=== PATIENT | male | born 1985 | race Caucasian/White ===

== ENCOUNTER 2019-08-23 11:40 | Emergency (ER) | payer OTHER, BC ==
[~2019-08-23] VITALS: Ht 177.8 cm; Wt 86.2 kg
--- OUTSIDE RECORDS SUMMARY | ~2019-08-23 | XMS | Clinical Summary ---
Demographics + + + | Address | [address] | | | [place] [address] | + + + | Home Phone | | + + + | Preferred Language | Unknown | + + + | Marital Status | | + + + | Jainism Affiliation | Unknown | + + + | Race | Unknown | + + + | Ethnic Group | Unknown | + + + Author + + + | Author | [facility] (Historical as of | | | 12-09-18) | + + + | Organization | [facility] (Historical as of | | | 12-09-18) | + + + | Address | Unknown | + + + | Phone | Unavailable | + + + Support + + +---------+ + | Name | Relationship | Address | Phone | + + +---------+ + | Suzie Ordoñez | ECON | Unknown | | + + +---------+ + Care Team Providers + +------+ + | Care Mortgage Protection Specialist Name | Role | Phone | + +------+ + | Iglesia Pierre PA-C | PP | | + +------+ + Allergies No Known Allergies Current Medications + + +-------+---------+------+------+-------+ | Prescription | Sig. | Disp. | Refills | Star | End | Statu | | | | | | t | Date | s | | | | | | Date | | | + + +-------+---------+------+------+-------+ | clonazePAM | Take 1 mg by mouth 2 | | | | | Activ | | (KLONOPIN) 1 MG | (two) times daily | | | | | e | | tablet | as needed for | | | | | | | | Anxiety. | | | | | | + + +-------+---------+------+------+-------+ | acyclovir | Take 400 mg by mouth | | | | | Activ | | (ZOVIRAX) 400 MG | 5 (five) times | | | | | e | | tablet | daily. | | | | | | + + +-------+---------+------+------+-------+ | zolpidem (AMBIEN) | Take 5 mg by mouth | | | | | Activ | | 5 MG tablet | nightly as needed | | | | | e | | | for Sleep. | | | | | | + + +-------+---------+------+------+-------+ | sumatriptan | Take 100 mg by mouth | | | | | Activ | | (IMITREX) 100 MG | as needed for | | | | | e | | tablet | Migraine. May repeat | | | | | | | | dose in 2 hours if | | | | | | | | no relief. Do not | | | | | | | | exceed 2 doses in 24 | | | | | | | | hours. | | | | | | + + +-------+---------+------+------+-------+ | celecoxib | Take 200 mg by mouth | | | | | Activ | | (CELEBREX) 200 MG | 2 (two) times | | | | | e | | capsule | daily. | | | | | | + + +-------+---------+------+------+-------+ | FLUoxetine | Take 40 mg by mouth | | | 04/0 | | Activ | | (PROZAC) 20 MG | daily. | | | 3/20 | | e | | capsule | | | | 18 | | | + + +-------+---------+------+------+-------+ Active Problems + + + | Problem | Noted Date | + + + | Mild exercise-induced asthma | 09/22/2016 | + + + + + | Overview: Overview: Since childhood pretreats prior to | | running 10 min speedwork on treadmill (2-3x/week). If he doesn't | | will cough and have trouble taking deep breath. No fam hx with | | asthma. Cold air can also trigger cough. No other triggers (ie | | allergies, smoke, viruses). | + + + + + | Anxiety and depression | 03/23/2016 | + + + + + | Overview: Overview: Clonazepam 0.5mg BID PRN #15 lasted 4 | | months (Dec 2015 --> and again Apr-->August 2016).Since ~ | | 2010 controlled with fluoxetine 40mg in winter, 20mg in | | summer.Clonazepam prn, ranges from half the days in the week to | | twice monthly.Has had counselor over the years.In years past has | | tried zoloft, paxil, lexapro, celexa. Prozac works well with few | | side effects. | + + + + + | PFO (patent foramen ovale) | 03/23/2016 | + + + + + | Overview: Overview: History of PFO - Closed percutaneously | | with Dr. Erazo at [facility] 11/12/2015. Pipe Bender | | Satnam (Zaida العلي/Luisa/ Gerard).Closed due to h/o | | migraine HAs.When younger used to have syncopal episodes with | | exertion. | + + + + + | Migraine headache | 03/23/2016 | + + + + + | Overview: Overview: | | Lifelong, family history. | | Frequency improved by about 50% since PFO closure October 2015. | | Imitrex works well. Now having ~4 HAs/ month. | + + + + + | Seasonal affective disorder (HCC) | 03/23/2016 | + + + + + | Overview: Overview: As of 2015 has taken wellbutrin 100mg SR | | daily during winter only for ~ 3 seasons which worked well.He | | also increases his dose of fluoxetine in the tamayo.Tried broad | | spectrum lamps and changing lights in his house, but did not help | | much. | + + + + + | Herpes simplex | 02/22/2012 | + + + + + | Overview: Last Assessment & Plan: | | Acyclovir written. | + + + + + | Major depressive disorder, recurrent episode, in partial | 02/22/2012 | | remission (HCC) | | + + + + + | Overview: Last Assessment & Plan: | | Stable. | + + + + + | Allergic rhinitis | 02/12/2010 | + + + Immunizations + + + + | Name | Dates Previously Given | Next Due | + + + + | DTaP | 12/04/1991, 11/09/1989, 02/25/1987, | | | | 1986, 1986 | | + + + + | Hep A / Hep B | 06/28/2017, 06/15/2017, 06/07/2017 | | + + + + | Hep B / HiB | 06/27/2001 | | + + + + | Hepatitis B Adult | 08/10/1999 | | + + + + | IPV | 12/03/1989, 11/09/1989, 1986, | | | | 1986 | | + + + + | MMR | 10/12/1995, 05/29/1989 | | + + + + | Td W/o Preservative | 01/29/2004 | | | (Adol/adult) | | | + + + + Social History + +-------+ +--------+------+ | Tobacco Use | Types | Packs/Day | Years | Date | | | | | Used | | + +-------+ +--------+------+ | Never Smoker | | | | | + +-------+ +--------+------+ + +---+---+---+ | Smokeless Tobacco: | | | | | Never Used | | | | + +---+---+---+ + + +---------+ + | Alcohol Use | Drinks/We | oz/Week | Comments | | | ek | | | + + +---------+ + | No | | | | + + +---------+ + + + + | Sex Assigned at | Date Recorded | | | | + + + | Not on file | | + + + Last Filed Vital Signs + + + + | Vital Sign | Reading | Time Taken | + + + + | Blood Pressure | 121/80 | 10/16/2018 8:15 AM PDT | + + + + | Pulse | 86 | 10/16/2018 8:15 AM PDT | + + + + | Temperature | 36.7 C (98 F) | 10/16/2018 8:15 AM PDT | + + + + | Respiratory Rate | - | - | + + + + | Oxygen Saturation | - | - | + + + + | Inhaled Oxygen | - | - | | Concentration | | | + + + + | Weight | 88.5 kg (195 lb 3.2 | 10/16/2018 8:15 AM PDT | | | oz) | | + + + + | Height | - | - | + + + + | Body Mass Index | - | - | + + + + Plan of Treatment + + + + + | Health Maintenance | Due Date | Last Done | Comments | + + + + + | Vaccine: | 10/07/200 | 01/29/2004, 12/04/1991, | | | Dtap/Tdap/Td (6 - | 4 | 11/09/1989, Additional history | | | Tdap) | | exists | | + + + + + | Vaccine: | | | | | Pneumococcal 19-64 | 5 | | | | (PPSV23 only) Medium | | | | | Risk (1 of - | | | | | PPSV23) | | | | + + + + + | Vaccine: Influenza | | | | | (Season Ended) | 0 | | | + + + + + Results Not on filefrom Last 3 Months Insurance + +--------+ +------+-------+ + | Payer | Benefi | Subscriber | Type | Phone | Address | | | t Plan | ID | | | | | | / | | | | | | | Group | | | | | + +--------+ +------+-------+ + | MEDICAID | JAMAR | [id number] | | | [address] | | | N | | | | [place] | | | [place] | | | | [address] | | | VIDEO PLAYER MECHANIC | | | | | + +--------+ +------+-------+ + + +--------+ +--------+ + + | Guarantor Name | Accoun | Relation to | Date | Phone | Billing Address | | | t Type | Patient | of | | | | | | | | | | + +--------+ +--------+ + + | KA[facility] ORDO[facility] | Person | Self [birth year] | Home: | [address] | | [place] | ghanshyam/Mahesh | | 1984 | +- | [place] | | | [place] | | | [phone] | [phone] | + +--------+ +--------+ + +"
--- OUTSIDE RECORDS SUMMARY | ~2019-08-23 | XMS | Clinical Summary ---
Demographics + + + | Address | [address] | | | [place] [address] | + + + | Home Phone | | + + + | Preferred Language | Unknown | + + + | Marital Status | | + + + | Congregational Affiliation | Unknown | + + + | Race | Unknown | + + + | Ethnic Group | Unknown | + + + Author + + + | Author | [facility] (Historical as of | | | 12-09-18) | + + + | Organization | [facility] (Historical as of | | | 12-09-18) [...] Team Providers + +------+ + | Care Flagstone Layer Name | Role | Phone | + [...] percutaneously | | with Dr. Erazo at [facility] 11/12/2015. Ramp Boss | | Satnam (Zaida العلي/Luisa/ Gerard).Closed due [...] +------+-------+ + | MEDICAID | JAMAR | [id number] | | | [address] | | | [place] | | | | [place] | | | [place] | | | | [phone] | | | PREPARATOR | | | | | + +--------+ [...] | renan | | | [phone] | [phone] | + +--------+ +--------+ + +"
--- OUTSIDE RECORDS SUMMARY | 2019-08-23 11:42 | XMS ---
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 EMallory VISIT COUNT (12 MO.) 1 [facility] TOTAL 1 NOTE: Visits indicate total known visits. ED/UCC VISIT TRACKING (12 MO.) 08/23/2019 11:41 [facility] [place] TYPE: Emergency COMPLAINT: - COUGH, SORE THROAT INPATIENT VISIT TRACKING (12 MO.) No inpatient visits to display in this time frame [id number]
[2019-08-23] MEDS ORDERED: SUMATRIPTAN SU100 MG PO (11:53)
[2019-08-23] MEDS ORDERED: FLUOXETINE HCL40 MG PO (11:53)
== END 2019-08-23 12:35 | disposition home or self-care (01) ==
LOC: ED 11:40
DX: J40 Bronchitis, not specified as acute or chronic (principal); K52.9 Noninfective gastroenteritis and colitis, unspecified; B34.9 Viral infection, unspecified; Z79.899 Other long term (current) drug therapy
CPT/HCPCS: 99284; U0002

== ENCOUNTER 2019-09-07 13:54 | Emergency (ER) | payer BC, OTHER ==
[~2019-09-07] VITALS: Ht 177.8 cm; Wt 86.2 kg
--- OUTSIDE RECORDS SUMMARY | ~2019-09-07 | XMS | Clinical Summary ---
Demographics + + + | Address | [address] | | | [place] [address] | + + + | Home Phone | | + + + | Preferred Language | Unknown | + + + | Marital Status | | + + + | Mandaen Affiliation | Unknown | + + + | Race | Unknown | + + + | Ethnic Group | Unknown | + + + Author + + + | Author | [facility] (Historical as of | | | 12-09-18) | + + + | Organization | [facility] (Historical as of | | | 12-09-18) [...] Team Providers + +------+ + | Care Manager Brand Name | Role | Phone | + [...] percutaneously | | with Dr. Erazo at [facility] 11/12/2015. Patient Service Specialist | | Satnam (Zaida العلي/Luisa/ Gerard).Closed due [...] +------+-------+ + | MEDICAID | JAMAR | [id number] | | | [address] | | | N | | | | [place] | | | [place] | | | | [address] | | | SALES FORCE DEVELOPER | | | | | + +--------+ [...] | renan | | | [phone] | [phone] | + +--------+ +--------+ + +"
--- OUTSIDE RECORDS SUMMARY | ~2019-09-07 | XMS | Clinical Summary ---
Demographics + + + | Address | [address] | | | [place] [address] | + + + | Home Phone | | + + + | Preferred Language | Unknown | + + + | Marital Status | | + + + | Judaism Affiliation | Unknown | + + + | Race | Unknown | + + + | Ethnic Group | Unknown | + + + Author + + + | Author | [facility] [employer] (Historical as of | | | 12-09-18) | + + + | Organization | [facility] [employer] (Historical as of | | | 12-09-18) [...] Team Providers + +------+ + | Care Nuclear Control Room Operator Name | Role | Phone | + [...] | with Dr. Erazo at [facility] 11/12/2015. Technical Healthcare Consultant | | Satnam (Zaida العلي/Luisa/ Gerard).Closed due [...] +------+-------+ + | MEDICAID | JAMAR | [id number] | | | [address] | | | [place] | | | | [place] | | | [place] | | | | [address] | | | CHIEF COOK | | | | | + +--------+ [...] | renan | | | [phone] | [phone] | + +--------+ +--------+ + +"
[~2019-09-07 13:54] MED LIST: FLUOXETINE HCL40 MG PO; SUMATRIPTAN SU100 MG PO
--- OUTSIDE RECORDS SUMMARY | 2019-09-07 13:58 | XMS ---
PreManage Notification: SIL SELF Security Strap Buckler Events No recent Security Events currently on file CRITERIA MET - [facility] - 2 Visits in 30 Days CARE PROVIDERS Iglesia Pierre PA-C Physician Bicycle Ii Assembler Current PHONE: Unknown Arley has no Care Guidelines for this patient. EMallory VISIT COUNT (12 MO.) 2 [facility] TOTAL 2 NOTE: Visits indicate total known visits. ED/UCC VISIT TRACKING (12 MO.) 09/07/2019 13:55 [facility] [place] TYPE: Emergency COMPLAINT: - SOB,COUGH 08/23/2019 11:41 [facility] [place] TYPE: Emergency COMPLAINT: - COUGH, SORE THROAT DIAGNOSES: - Bronchitis, not specified as acute or chronic - Viral infection, unspecified - Noninfective gastroenteritis and colitis, unspecified - Other halfway (current) drug therapy - Cough INPATIENT VISIT TRACKING (12 MO.) No inpatient visits to display in this time frame [id number]
[2019-09-07] MEDS ORDERED: IPRAT-ALBUT 0.5-3 ML INH (14:07)
[2019-09-07] MEDS ORDERED: AZITHROMYCIN250 MG PO (14:07)
[2019-09-07] MEDS ORDERED: ALBUTEROL2.5 MG/3 M INH (14:08)
[2019-09-07] MEDS ORDERED: VIRTUSSIN AC L118 ML PO (14:08)
[2019-09-07] MEDS ORDERED: PREDNISONE20 MG PO (15:27)
[2019-09-07] MEDS ORDERED: ZOFRAN4 MG PO (15:27)
== END 2019-09-07 15:46 | disposition home or self-care (01) ==
LOC: ED 13:54
DX: R11.2 Nausea with vomiting, unspecified (principal); R05 Cough; R19.7 Diarrhea, unspecified; J45.909 Unspecified asthma, uncomplicated; Z79.899 Other long term (current) drug therapy
CPT/HCPCS: 71045; 80053; 85025; 96361; 96374; 99284-25; J2405; J7121; U0002

== ENCOUNTER 2019-12-03 04:57 | Emergency (ER) | payer BC ==
[~2019-12-03] VITALS: Ht 177.8 cm; Wt 86.2 kg
[~2019-12-03 04:57] MED LIST changes: +ALBUTEROL2.5 MG/3 M INH; +AZITHROMYCIN250 MG PO; +IPRAT-ALBUT 0.5-3 ML INH; +PREDNISONE20 MG PO; +VIRTUSSIN AC L118 ML PO; +ZOFRAN4 MG PO
--- OUTSIDE RECORDS SUMMARY | 2019-12-03 05:00 | XMS ---
PreManage Notification: SIL SELF Security Customer Experience Retail Clerk Events No recent Security Events currently on file CRITERIA MET - PDMP CARE PROVIDERS Iglesia Pierre PA-C Physician Supply Crib Attendant Current PHONE: Unknown SKYLAR BOUDREAUX Internal Medicine: Pulmonary Disease 09/10/2019-Current PHONE: Unknown Arley has no Care Guidelines for this patient. Care History Medical/Surgical 09/10/2019 [facility] - Patient is currently established with [facility]. If patient is seen in the ED during business hours. Please contact [facility] at [facility]. Care Recommendation: If this patient has had 5 or more Emergency Department visits in the last 12 months.\T\nbsp; Patient will require education on the scope and purpose of the ED as an acute care provider not a Primary Care Provider and should not be utilized for chronic conditions.\T\nbsp; These are guidelines and the provider should exercise clinical judgment when providing care. E.D. VISIT COUNT (12 MO.) 3 [facility] TOTAL 3 NOTE: Visits indicate total known visits. ED/UCC VISIT TRACKING (12 MO.) 12/03/2019 04:57 [facility] [place] TYPE: Emergency COMPLAINT: - VOMITING 09/07/2019 13:55 [facility] [place] TYPE: Emergency COMPLAINT: - SOB,COUGH DIAGNOSES: - Other terminal manager (current) drug therapy - Nausea with vomiting, unspecified - Cough - Unspecified asthma, uncomplicated - Diarrhea, unspecified 08/23/2019 11:[address] [facility] [place] TYPE: Emergency COMPLAINT: - COUGH, SORE THROAT DIAGNOSES: - Bronchitis, not specified as acute or chronic - Viral infection, unspecified - Noninfective gastroenteritis and colitis, unspecified - Other correction (current) drug therapy - Cough - Contact with and (suspected) exposure to other viral communic INPATIENT VISIT TRACKING (12 MO.) No inpatient visits to display in this time frame [id number]
[2019-12-03] MEDS ORDERED: ZOFRAN4 MG PO (06:59)
== END 2019-12-03 07:11 | disposition home or self-care (01) ==
LOC: ED 04:57
DX: K52.9 Noninfective gastroenteritis and colitis, unspecified (principal); G43.909 Migraine, unspecified, not intractable, without status migrainosus; J45.909 Unspecified asthma, uncomplicated; Z88.8 Allergy status to other drugs, medicaments and biological substances; Z79.899 Other long term (current) drug therapy
CPT/HCPCS: 80053; 83735; 85025; 96374; 99284-25; J2405; J7030

== ENCOUNTER 2024-12-21 03:09 | Emergency (ER) | payer OTHER, BC ==
[~2024-12-21] VITALS: Ht 177.8 cm; Wt 93.8 kg
[2024-12-21] MEDS ORDERED: KETOROLAC TROMETHAMINE 60 MG/2 ML VIAL IM ONE (03:30)
[2024-12-21 04:56] VITALS: BP 116/86
== END 2024-12-21 04:56 | disposition home or self-care (01) ==
LOC: ED 03:09
DX: S20.212A Contusion of left front wall of thorax, initial encounter (principal); Y04.2XXA Assault by strike against or bumped into by another person, initial encounter; J45.909 Unspecified asthma, uncomplicated; Z88.8 Allergy status to other drugs, medicaments and biological substances; Z79.899 Other long term (current) drug therapy
CPT/HCPCS: 71045; 96372; 99284-25; J1885

== ENCOUNTER 2024-12-26 16:50 | Emergency (ER) | payer OTHER, BC ==
[~2024-12-26] VITALS: Ht 177.8 cm; Wt 94.0 kg
[2024-12-26] MEDS ORDERED: BRINTELLIX10 MG PO (17:06)
[2024-12-26] MEDS ORDERED: ONDANSETRON HCL8 MG PO (17:06)
[2024-12-26] MEDS ORDERED: BELSOMRA5 MG PO (17:06)
[2024-12-26] MEDS ORDERED: OMEPRAZOLE40 MG PO (17:06)
[2024-12-26] MEDS ORDERED: LITHIUM CARBON300 MG PO (17:06)
[2024-12-26] MEDS ORDERED: METHYLPHENIDATE30 M1 PO (17:07)
[2024-12-26] MEDS ORDERED: PROMETHAZINE HC25 M1 PO (17:07)
[2024-12-26] MEDS ORDERED: METHOCARBAMOL750 MG PO (17:12)
[2024-12-26] MEDS ORDERED: VALACYCLOVIR1000 MG PO (17:12)
[2024-12-26] MEDS ORDERED: CLONAZEPAM1 MG PO (17:13)
[2024-12-26] MEDS ORDERED: HYDROCODON-ACE1 EA10 PO (17:37)
[2024-12-26 17:49] VITALS: BP 148/101
== END 2024-12-26 17:50 | disposition home or self-care (01) ==
LOC: ED 16:50
DX: S22.32XA Fracture of one rib, left side, initial encounter for closed fracture (principal); J45.909 Unspecified asthma, uncomplicated; Z88.8 Allergy status to other drugs, medicaments and biological substances; Z79.899 Other long term (current) drug therapy; X58.XXXA Exposure to other specified factors, initial encounter
CPT/HCPCS: 99283

== ENCOUNTER 2024-12-30 06:06 | Emergency (ER) | payer OTHER, BC ==
[~2024-12-30] VITALS: Ht 177.8 cm; Wt 94.0 kg
[~2024-12-30 06:06] MED LIST changes: +BELSOMRA5 MG PO; +BRINTELLIX10 MG PO; +CLONAZEPAM1 MG PO; +HYDROCODON-ACE1 EA10 PO; +LITHIUM CARBON300 MG PO; +METHOCARBAMOL750 MG PO; +METHYLPHENIDATE30 M1 PO; +OMEPRAZOLE40 MG PO; +ONDANSETRON HCL8 MG PO; +PROMETHAZINE HC25 M1 PO; +VALACYCLOVIR1000 MG PO
[2024-12-30] MEDS ORDERED: KETOROLAC TROMETHAMINE 60 MG/2 ML VIAL IM ONE (06:15)
[2024-12-30] MEDS ORDERED: LYRICA75 MG PO (06:49)
[2024-12-30] MEDS ORDERED: methylPREDNISolone 4 MG HOME.PACK PO ONE (07:00)
[2024-12-30 07:06] VITALS: BP 142/78
== END 2024-12-30 07:07 | disposition home or self-care (01) ==
LOC: ED 06:06
DX: M94.0 Chondrocostal junction syndrome [Tietze] (principal); M79.2 Neuralgia and neuritis, unspecified; J45.909 Unspecified asthma, uncomplicated; Z88.8 Allergy status to other drugs, medicaments and biological substances; Z79.899 Other long term (current) drug therapy
CPT/HCPCS: 71250; 99283-25

== ENCOUNTER 2025-03-01 11:47 | Emergency (ER) | payer BC, OTHER ==
[~2025-03-01] VITALS: Ht 177.8 cm; Wt 103.1 kg
--- OUTSIDE RECORDS SUMMARY | ~2025-03-01 | XMS | Continuity of Care Document ---
Demographics + + + | Address | [address] | | | [place] [address] | + + + | Preferred Language | Unknown | + + + | Marital Status | | + + + | Christianity Affiliation | Unknown | + + + | Race | White | + + + | Ethnic Group | Not or | + + + Author + + + | Author | [facility] | + + + | Organization | [facility] | + + + | Address | [address] | | | [place] [address] | + + + | Phone | | + + + Care Team Providers + + + + | Care Dental Service Technician Name | Role | Phone | + + + + Unavailable | Unavailable | + + + + Unavailable | Unavailable | + + + + Allergies and Intolerances + + + + + + | date | description | facility | reaction | severity | + + + + + + | 2024-12-26 | Metoclopramide | [facility] | (no severity) | | 00:00 | | [facility] | | | + + + + + + | 2024-12-26 | Metoclopramide | [facility] - | Agitation | (no severity) | | 00:00 | | [facility] | | | + + + + + + | 2024-12-26 | Metoclopramide | [facility] - | Agitation | (no severity) | | 00:00 | | [facility] | | | [facility] | | | + + + + + + Encounters No information. Functional Status No information. Immunizations No information. Medications + + + + | date | description | facility | + + + + | (no date) | IPRATROPIUM/ALBUTEROL | [facility] | | | SULFATE | [facility] | + + + + | (no date) | SUVOREXANT | [facility] | | | | [facility] | + + + + | (no date) | VORTIOXETINE HYDROBROMIDE | [facility] | | | | [facility] | + + + + | (no date) | CLONAZEPAM | [facility] | | | | [facility] | + + + + | (no date) | LITHIUM CARBONATE | [facility] | | | | [facility] | + + + + | (no date) | METHOCARBAMOL | [facility] | | | | [facility] | + + + + | (no date) | OMEPRAZOLE | [facility] | | | | [facility] | + + + + | (no date) | AZITHROMYCIN | [facility] | | | | [facility] | + + + + | (no date) | ONDANSETRON HCL | [facility] | | | | [facility] | + + + + | (no date) | SUMATRIPTAN SUCCINATE | [facility] | | | | [facility] | + + + + | (no date) | VALACYCLOVIR HCL | [facility] | | | | [facility] | + + + + | (no date) | ALBUTEROL SULFATE | [facility] | | | | [facility] | + + + + | 2024-12-26 00:00 | HYDROCODONE | [facility] | | | BIT/ACETAMINOPHEN | [facility] | + + + + | (no date) | PROMETHAZINE HCL | [facility] | | | | [facility] | + + + + | (no date) | Codeine | [facility] | | | Phosphate/Guaifenesin | [facility] | + + + + Problems + + + + | date | description | facility | + + + + | 2024-12-21 00:00 | Contusion of rib on left | [facility] | | | side | [facility] | + + + + | 2024-12-26 00:00 | Fracture of rib of left | [facility] | | | side | [facility] | + + + + Procedures No information. Results/Labs No information. Social History +--------+ + + | date | description | facility | +--------+ + + Vital Signs + + + +---------+ | date | measurement | value | units | + + + +---------+ | 2024-12-21 00:00 | BMI | 29.7 | kg/m2 | + + + +---------+ | 2024-12-21 00:00 | BP_diastolic | 86 | mmHg | + + + +---------+ | 2024-12-21 00:00 | BP_systolic | 116 | mmHg | + + + +---------+ | 2024-12-21 00:00 | heart_rate | 67 | /min | + + + +---------+ | 2024-12-21 00:00 | height_metric | 177.8 | cm | + + + +---------+ | 2024-12-21 00:00 | height_standard | 70 | in | + + + +---------+ | 2024-12-21 00:00 | o2_saturation | 99 | % | + + + +---------+ | 2024-12-21 00:00 | respiration_rate | 17 | /min | + + + +---------+ | 2024-12-21 00:00 | | 98.6 | F | | | temperature_standar | | | | | d | | | + + + +---------+ | 2024-12-21 00:00 | weight_metric | 93.8 | kg | + + + +---------+ | 2024-12-21 00:00 | weight_standard | 206.793 | lb | + + + +---------+ | 2024-12-26 00:00 | BMI | 29.7 | kg/m2 | + + + +---------+ | 2024-12-26 00:00 | BP_diastolic | 101 | mmHg | + + + +---------+ | 2024-12-26 00:00 | BP_systolic | 148 | mmHg | + + + +---------+ | 2024-12-26 00:00 | heart_rate | 94 | /min | + + + +---------+ | 2024-12-26 00:00 | height_metric | 177.8 | cm | + + + +---------+ | 2024-12-26 00:00 | height_standard | 70 | in | + + + +---------+ | 2024-12-26 00:00 | o2_saturation | 97 | % | + + + +---------+ | 2024-12-26 00:00 | respiration_rate | 17 | /min | + + + +---------+ | 2024-12-26 00:00 | | 98.6 | F | | | temperature_standar | | | | | d | | | + + + +---------+ | 2024-12-26 00:00 | weight_metric | 94.001 | kg | + + + +---------+ | 2024-12-26 00:00 | weight_standard | 207.237 | lb | + + + +---------+"
[~2025-03-01 11:47] MED LIST changes: +LYRICA75 MG PO
[2025-03-01] MEDS ORDERED: LOSARTAN POTASS25 MG PO (11:59)
[2025-03-01] MEDS ORDERED: KETOROLAC TROMETHAMINE 30 MG/ML VIAL IV ONE (12:00)
[2025-03-01] MEDS ORDERED: SODIUM CHLORIDE 0.9% 1,000 ML IV ONE (12:00)
[2025-03-01] MEDS ORDERED: LORazepam 2 MG/ML VIAL IV ONE (12:00)
[2025-03-01 12:15] LABS: BASOPHILS 1.3 % (0.2-1.2); EOSINOPHILS 1.2 % (0.8-7.0); LYMPHOCYTES 20.3 % (21.8-53.1); MCH 30.2 PG (25.7-32.2); MCHC 34.2 g/dL (32.3-36.5); MCV 88.5 fL (79.0-92.2); MONOCYTES 5.5 % (5.3-12.2); NEUTROPHILS 70.8 % (34.0-67.9); RBC 5.06 M/uL (4.63-6.08)
[2025-03-01] MEDS ORDERED: DEXAMETHASONE SOD PHOS 10 MG/ML VIAL IV ONE (12:15)
[2025-03-01 12:35] LABS: ALT (SGPT) 56.0 U/L (14-59); AST (SGOT) 23.0 U/L (15-37); GLOMERULAR FILTRATION RATE,EST 91.0 mL/min (>60); PROTEIN, TOTAL 7.7 g/dL (6.4-8.2); UREA NITROGEN 11.0 mg/dL (7-18)
[2025-03-01 15:03] VITALS: BP 148/95
== END 2025-03-01 15:02 | disposition home or self-care (01) ==
LOC: ED 11:47
PROVIDERS: Emergency Medicine
DX: G43.909 Migraine, unspecified, not intractable, without status migrainosus (principal); J45.909 Unspecified asthma, uncomplicated
CPT/HCPCS: 36415; 80053; 85025; 96374; 96375; 99283-25; J1100; J1790; J1885; J2060; J2405; J7030